=== PATIENT | male | born 1940 | race Caucasian/White ===

== ENCOUNTER 2022-05-23 18:39 | Inpatient (IN) | payer MEDICARE, SELFPAY ==
[2022-05-23 18:40] VITALS: BP 133/84; PULSE 76; RESP 18; O2SAT 95; BMI 25.7
--- NOTE | 2022-05-23 18:40 | EKG12_ITS ---
Test Reason : Stroke like symptoms Blood Pressure : / mmHG Vent. Rate : 079 BPM Atrial Rate : 079 BPM P-R Int : 202 ms QRS Dur : 072 ms QT Int : 374 ms P-R-T Axes : 058 030 070 degrees QTc Int : 428 ms Sinus rhythm with occasional Premature ventricular complexes Nonspecific ST abnormality Abnormal ECG Confirmed by MARCO SEVILLA, VICKI ([id number]), editor book HIMANSHU VÁZQUEZ ([id number]) on 05/28/2022 10:39:47 AM Referred By: Confirmed By:CHARLEY LARA MD
--- NOTE | 2022-05-23 18:40 | CT_ITS ---
We are attempting to reach an attending provider to discuss findings. An addendum with communication details will be sent when the communication is complete. STUDY: CT BRAIN WITHOUT CONTRAST REASON FOR EXAM: Male, 81 years old. Neuro deficit, acute, stroke suspected Individualized dose optimization techniques were used for this CT. TECHNIQUE: Transaxial CT imaging of the brain was performed without administration of intravenous contrast material. COMPARISON: None FINDINGS: There are calcifications around the carotid artery. These are noted in the cavernous carotid arteries. Normal calvarium. Normal soft tissues. There is mild cerebral atrophy with widening of the extra-axial spaces and ventricular dilatation. There are areas of decreased attenuation within the white matter tracts of the supratentorial brain, consistent with microvascular disease changes. Normal basal ganglia and thalami. Normal brainstem. There is mild cerebellar atrophy. There is no intracranial hemorrhage. There are no findings of an acute ischemic infarction. Degenerative changes of the mandibular condyles. ASPECTS Score for Acute Strokes: 12/04 CT/STROKE Brain/Head without Cont IMPRESSION: There are no acute findings. Chronic involutional changes of the brain. Electronically Signed: Chavo Farrell MD at 18:54 EDT ,
--- NOTE | 2022-05-23 18:41 | CT_ITS ---
We are attempting to reach an attending provider to discuss findings. An addendum with communication details will be sent when the communication is complete. EXAM: CT ANGIOGRAPHY HEAD AND NECK WITH INTRAVENOUS CONTRAST CLINICAL INDICATION: Neuro deficit, acute, stroke suspected TECHNIQUE: [place] [facility] [place]/head and neck CT angiography protocol performed with intravenous contrast. This CT exam was performed using one or more of the following dose reduction techniques: automated exposure control, adjustment of the mA and/or kV according to patient size, and/or use of iterative reconstruction technique. This report was created using [employer] report [employer] technology. MIP reconstructed images were created and reviewed. CONTRAST: IV 100mL Isovue-370 RADIATION DOSE: CTDIvol = 21.80 mGy, DLP = 795.23 mGy-cm COMPARISON: None. FINDINGS: HEAD: RIGHT ANTERIOR CEREBRAL ARTERY: Unremarkable. No significant stenosis at the visualized segments. Anterior communicating artery is present. No aneurysm. RIGHT MIDDLE CEREBRAL ARTERY: Unremarkable. No significant stenosis at the visualized segments. No aneurysm. RIGHT POSTERIOR CEREBRAL ARTERY: Unremarkable. No occlusion or significant stenosis. No aneurysm. RIGHT INTRACRANIAL INTERNAL CAROTID ARTERY: Unremarkable. No significant stenosis. No dissection or occlusion. RIGHT INTRACRANIAL VERTEBRAL ARTERY: Unremarkable. No significant stenosis. No dissection or occlusion. LEFT ANTERIOR CEREBRAL ARTERY: Unremarkable. No significant stenosis at the visualized segments. No aneurysm. LEFT MIDDLE CEREBRAL ARTERY: Unremarkable. No significant stenosis at the visualized segments. No aneurysm. LEFT POSTERIOR CEREBRAL ARTERY: Unremarkable. No occlusion or significant stenosis. No aneurysm. LEFT INTRACRANIAL INTERNAL CAROTID ARTERY: Unremarkable. No significant stenosis. No dissection or occlusion. LEFT INTRACRANIAL VERTEBRAL ARTERY: Unremarkable. No significant stenosis. No dissection or occlusion. BASILAR ARTERY: Unremarkable. No significant stenosis. No aneurysm. OTHER VASCULATURE: There is mild atherosclerotic plaque formation of the origin of the right internal carotid artery with less than 50% cross sectional diameter stenosis. ALL ABOVE CRITERIA BY NASCET. There is mild atherosclerotic plaque formation of the origin of the left internal carotid artery with less than 50% cross sectional diameter stenosis. ALL ABOVE CRITERIA BY NASCET. There is calcified plaque formation of the right cavernous carotid artery, with a mild stenosis (less than 50%). ALL ABOVE CRITERIA BY NASCET. There is calcified plaque formation of the left cavernous carotid artery, with a mild stenosis (less than 50%). ALL ABOVE CRITERIA BY NASCET. NECK: RIGHT COMMON CAROTID ARTERY: Unremarkable. No significant stenosis. No dissection or occlusion. RIGHT EXTRACRANIAL INTERNAL CAROTID ARTERY: Unremarkable. No significant stenosis. No dissection or occlusion. RIGHT EXTERNAL CAROTID ARTERY: Unremarkable. No occlusion. RIGHT EXTRACRANIAL VERTEBRAL ARTERY: Unremarkable. No significant stenosis. No dissection or occlusion. LEFT COMMON CAROTID ARTERY: Unremarkable. No significant stenosis. No dissection or occlusion. LEFT EXTRACRANIAL INTERNAL CAROTID ARTERY: Unremarkable. No significant stenosis. No dissection or occlusion. LEFT EXTERNAL CAROTID ARTERY: There is mild atherosclerotic plaque formation of the origin of the right and left external carotid artery with less than 50% cross sectional diameter stenosis. ALL ABOVE CRITERIA BY NASCET. No occlusion. LEFT EXTRACRANIAL VERTEBRAL ARTERY: Unremarkable. No significant stenosis. No dissection or occlusion. BRACHIOCEPHALIC AND SUBCLAVIAN ARTERIES: Unremarkable as visualized. No occlusion or significant stenosis. LUNG APICES: Unremarkable as visualized. HEAD and NECK: BONES/JOINTS: There are degenerative findings of the cervical spine. Anterior cervical fusion plate in place. No discrete lytic or blastic abnormalities. SOFT TISSUES: Unremarkable. CAROTID STENOSIS REFERENCE USING NASCET CRITERIA: % ICA stenosis = (1 - narrowest ICA diameter/diameter of distal cervical ICA) x 100. Mild - <50% stenosis. Moderate - 50-69% stenosis. Severe - 70-94% stenosis. Near occlusion - 95-99% stenosis. Occluded - 100% stenosis. CT/STROKE CTA Head AND Neck W/Con IMPRESSION: 1. There is mild atherosclerotic plaque formation of the origin of the right internal carotid artery with less than 50% cross sectional diameter stenosis. ALL ABOVE CRITERIA BY NASCET. 2. There is mild atherosclerotic plaque formation of the origin of the left internal carotid artery with less than 50% cross sectional diameter stenosis. ALL ABOVE CRITERIA BY NASCET. 3. There is calcified plaque formation of the right cavernous carotid artery, with a mild stenosis (less than 50%). ALL ABOVE CRITERIA BY NASCET. 4. There is calcified plaque formation of the left cavernous carotid artery, with a mild stenosis (less than 50%). ALL ABOVE CRITERIA BY NASCET. Electronically Signed: Chavo Farrell MD at 19:23 EDT ,
[2022-05-23 18:49] VITALS: PULSE 93; RESP 20; TEMP 36.1; O2SAT 93; BMI 25.6
--- NOTE | 2022-05-23 18:49 | EDS_ITS ---
HPI History of Present Illness Chief Complaint: Stroke Alert Detail of Chief Complaint: Altered mental status Informant: family (Son who lives with him states he was normal at noon. He began to have changes at 1400.) Limited: dementia Onset/Context/Timing Onset: Hours (Onset 1400) Context: Sudden Onset Timing: Continuous Onset: 1400 Current Severity: Severe Maximum Severity: Severe Worsened by: Unknown Relieved by: Not Associated Symptoms Associated Symptoms: Positive for - (Aphasia) Narrative Narrative: Patient is an 81-year-old gentleman who has type 1 diabetes for 75 years and lives with his son who arrived by ambulance for possible stroke. Initial onset was thought to be 12 noon per squad. After speaking with son it was determined the onset was 1400. Son states at noon he was talking and watching the news. Son states at approximately 2:00 he was not acting his normal self. He checked his blood sugar. Blood sugar was 168. He gave him something to eat. There was no change in his behavior. Repeat blood sugar was 119. At which point he contacted paramedics. He believes this was around 1430. At 1445 blood sugar was 69. Per squad blood sugar was 39. He initially was treated with glucagon. He was then administered D50 once an IV was established. He was more responsive and began to eat. Son states he has not spoken since 1400. Patient was met in the ambulance bay. Patient is staring and has pin rolling motion noted left upper extremity. Per son and squad there is no history of Parkinson's. Prior similar symptoms: No Recent Illness/Hospitalization: No PFSH PFSH Home Medications insulin NPH isoph U-100 human 100 unit/mL subcutaneous suspension (Humulin N NPH U-100 Insulin (isophane susp)) 40 unit SQ DAILY 01/11/17 [History Last Taken 01/11/17 08:00] Allergy/AdvReac Type Severity Reaction Status Date / Time No Known Allergies Allergy Verified 01/11/17 17:48 Social History (Updated 05/23/22 @ 18:[address] Walter Garcia MD) household members: family Smoking Status: Never smoker alcohol intake: current alcohol intake frequency: holidays/special occasions only substance use type: does not use ROS ROS ED Review of Systems ROS Unobtainable: due to mental status EXAM Physical Exam Const Vital Signs: 05/23/22 18:40 05/23/22 18:49 05/23/22 19:03 Temperature 97.0 F L Temperature Source Temporal Pulse Rate 93 78 Respiratory Rate 20 H 22 H Blood Pressure 138/65 H Blood Pressure Mean 89 Pulse Ox 93 99 Oxygen Delivery Method Room Air Room Air Room Air 05/23/22 18:40 Temperature Temperature Source Pulse Rate 76 Respiratory Rate 18 Blood Pressure 133/84 H Blood Pressure Mean 100 Pulse Ox 95 Oxygen Delivery Method Room Air Positive well nourished and well developed Constitutional Narrative: Patient is staring. There is abnormal pin rolling motion of the left upper extremity General Appearance ED: well developed and NAD HEENT Reports dry mucous membranes Mouth ED: Yes dry mucous membranes Mouth: dry mucous membranes Eyes EOMs intact bilaterally Eyes Narrative: There is no nystagmus. Patient does blink to threat. General Eye ED: Negative for pale conjunctiva or scleral icterus Neck no lymphadenopathy, supple and no JVD Resp normal respiratory effort and clear to auscultation bilaterally Cardio no murmurs Rate: regular rate Rhythm: regular rhythm GI normal to inspection, nondistended, normoactive bowel sounds, soft to palpation and non-tender Extremity normal to inspection General Extremety ED: Negative for deformity or edema General Extremity: Negative for deformity or edema Neuro No oriented x3 Stefanie Coma Scale: document GCS findings Spontaneous Localizes to Pain None 10 Psych Psych Narrative: Unable to determine Skin no wounds General Skin Exam: Negative for jaundice Lesions: no lesions Rashes: no rashes NIHSS NIHSS Initial: 1a Level of Consciousness: 1 1b LOC Questions (Score 2 if aphasic/stupor): 2 1c LOC Commands (Only score 1st attempt): 2 2 Best Gaze (If aphasic, use reflexive mvmts.): 0 3 Visual: 0 4 Facial Palsy: 0 5 Motor Arm Right (UN = amputation/fusion): 0 5 Motor Arm Left: 0 6 Motor Leg Right: UN 6 Motor Leg Left: UN 7 Limb ataxia (Only + if out of proportion): UN 8 Sensory (Aphasia/stupor=0 or 1, coma=2): 1 9 Best Language: 3 10 Dysarthria (mute, coma=2, intubated=UN): 2 11 Extinction and Inattention (only scored if +): 0 Total Score: 11 MDM MDM MDM Narrative Medical decision making narrative: Differential diagnosis stroke, residual effect from hyperglycemia, partial/complex seizure. Patient is outside the window for tenecteplase. Stroke team was called prehospital. Stroke order set was entered. The radiologist read the unenhanced scan is negative. We will need to also evaluate metabolic or infectious causes. History & Record Review Discussion w/independent historian: EMS personnel and Family Additional record(s) reviewed:: Prior ED visit (Last ER visit was in 2017 for hypoglycemia) Lab Data Attestation: I reviewed the patient's lab results. Lab results narrative: White count is slightly elevated. H&H is 12.3 and 35.1 with an MCV of 104.1. This for results mild macrocytosis anemia. Coags normal. Basic metabolic panel is remarked for a glucose of 211 with normal CO2 and anion gap. Troponin is normal. Labs: Laboratory Results - last 24 hr 05/23/22 05/23/22 05/23/22 19:00 19:00 19:00 WBC 12.7 H RBC 3.39 L Hgb 12.3 L Hct 35.3 L MCV 104.1 H MCH 36.3 H MCHC 34.8 RDW Std Deviation 51.3 H RDW Coeff of Fabricio 13.2 Plt Count 232 MPV 10.3 Immature Gran % (Auto) 0.500 Neut % (Auto) 88.3 H Lymph % (Auto) 6.3 L Coleman % (Auto) 4.3 Eos % (Auto) 0.2 Baso % (Auto) 0.4 Absolute Neuts (auto) 11.3 H Absolute Lymphs (auto) 0.80 L Nucleated RBC % 0 PT 14.1 INR 1.1 APTT 25.3 Sodium 136 Potassium 4.2 Chloride 102 Carbon Dioxide 28.0 Anion Gap 6 BUN 16 Creatinine 1.01 Estim Creat Clear Calc 54.55 Est GFR (MDRD) Af Amer 91 Est GFR (MDRD) Non-Af 75 BUN/Creatinine Ratio 15.8 Glucose 211 H Calcium 8.5 Troponin I High Sens 47 Radiography Chest X-Ray - ED: 1 View and Read by ED Physician (Single view x-ray reveals rotation. Possible borderline cardiomegaly. Cardiac silhouette is unremarkable. Perihilar region is remarkable because of the rotation otherwise not. Osseous structures unremarkable. There is no acute infiltrate, effusion etc. This is independently reviewed interprete) Diagnostic Testing: Clinical Impression(s) from Imaging Studies Brain CT 05/23/22 18:40 IMPRESSION: There are no acute findings. Chronic involutional changes of the brain. Electronically Signed: Chavo Farrell MD at 18:54 EDT , ADDENDUM: 05/23/22 1902 IMPRESSION: There are no acute findings. Chronic involutional changes of the brain. N.B. : The above Results were Read Back by Chavo Farrell MD to Walter Garcia MD, and understanding confirmed on 05/23/2022 18:55:16 (ET). Electronically Signed: Chavo Farrell MD at 18:54 EDT , Head/Neck CTA 05/23/22 18:41 IMPRESSION: 1. There is mild atherosclerotic plaque formation of the origin of the right internal carotid artery with less than 50% cross sectional diameter stenosis. ALL ABOVE CRITERIA BY NASCET. 2. There is mild atherosclerotic plaque formation of the origin of the left internal carotid artery with less than 50% cross sectional diameter stenosis. ALL ABOVE CRITERIA BY NASCET. 3. There is calcified plaque formation of the right cavernous carotid artery, with a mild stenosis (less than 50%). ALL ABOVE CRITERIA BY NASCET. 4. There is calcified plaque formation of the left cavernous carotid artery, with a mild stenosis (less than 50%). ALL ABOVE CRITERIA BY NASCET. Electronically Signed: Chavo Farrell MD at 19:23 EDT , ADDENDUM: 05/23/22 1931 IMPRESSION: 1. There is mild atherosclerotic plaque formation of the origin of the right internal carotid artery with less than 50% cross sectional diameter stenosis. ALL ABOVE CRITERIA BY NASCET. 2. There is mild atherosclerotic plaque formation of the origin of the left internal carotid artery with less than 50% cross sectional diameter stenosis. ALL ABOVE CRITERIA BY NASCET. 3. There is calcified plaque formation of the right cavernous carotid artery, with a mild stenosis (less than 50%). ALL ABOVE CRITERIA BY NASCET. 4. There is calcified plaque formation of the left cavernous carotid artery, with a mild stenosis (less than 50%). ALL ABOVE CRITERIA BY NASCET. N.B. : The above Results were Read Back by Chavo Farrell MD to Walter Garcia MD, and understanding confirmed on 05/23/2022 19:24:10 (ET). Electronically Signed: Chavo Farrell MD at 19:23 EDT , EKG Initial EKG: Attestation: I personally reviewed and interpreted this EKG as follows: Interpretation: Sinus Rhythm (Ventricular rate 79. There are premature ventricular beats noted. There is artifact. VA interval is 202 ms. Cures duration 73 ms. QT durations 174 ms. [place] is normal. Computer is reading the artifact as nonspecific ST-T wave changes.) Management Discussion w/another healthcare provider: Client Services Account Manager (Spoke with Dr. Nascimento neurologist at [facility]. She requested call back if there was a significant large v essel occlusion otherwise local work-up. Agrees differential would include adverse reaction to hypoglycemia.) and Radiologist (Spoke with radiologist regarding unenhanced scan.) Stroke Documentation Questions Stroke Team Activated: Yes Reviewed Inclusion/Exclusion criteria: Yes IV Thrombolytic Administered: No No contraindications from thrombolytic administration: No Discharge Plan Dx/Rx/DC Orders Clinical Impression: Expressive aphasia, Dementia, Acute alteration in mental status, Controlled type 1 diabetes mellitus with hyperglycemia Disposition Disposition: Acute Care Hospital [facility]
--- NOTE | 2022-05-23 18:49 | CM.ED ---
Social Work Note Referral Source: stroke alert Referral Reason: emotional support. SW responded to stroke alert and introduced herself and role as [facility] Record Clerk. Patient's son, Frankie, was present. 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 Emotional support provided. SAURABH Melendez gathering information from patient's son. SW remains available if additional needs arise. Ani Stahl AIRPORT LOCATION MANAGER, [place]
[2022-05-23 19:02] VITALS: BMI 25.7
[2022-05-23 19:03] VITALS: BP 138/65; PULSE 78; RESP 22; O2SAT 99
[2022-05-23 19:06] LABS: Absolute Neutrophil Count 11.3 X10^3/uL (2.0-7.7); Basophil# 0.05 X10^3/uL; Basophil% 0.4 % (0-1); Eosinophil# 0.02 X10^3/uL; Eosinophils% 0.2 % (0-5); Hematocrit 35.3 % (40-54); Hemoglobin 12.3 g/dL (13.0-16.5); Lymphocyte % 6.3 % (19-41); Mean Corp Hgb Conc 34.8 g/dL (32-36); Mean Corpuscular Hgb 36.3 pg (27.0-32.0); Mean Corpuscular Volume 104.1 fL (80-94); Mean Platelet Vol. 10.3 fl (6.2-12.0); Monocyte# 0.55 X10^3/uL; Monocyte% 4.3 % (0-10); NRBC Flagged by Analyzer 0 % (0-5); Neutrophil # 11.25 X10^3/uL (2.7-7.7); Neutrophil % 88.3 % (47-70); Platelet Count 232 K/mm3 (150-450); RBC Distribution Width CV 13.2 % (11.6-14.6); RBC Distribution Width SD 51.3 fl (35.1-43.9); Red Blood Count 3.39 M/mm3 (4.6-6.2); White Blood Count 12.7 K/mm3 (4.4-11.0)
[2022-05-23 19:24] LABS: Anion Gap 6 (5-15); BUN 16 mg/dL (7-18); BUN/Creat Ratio 15.8 RATIO (10-20); Calcium,Total 8.5 mg/dL (8.5-10.1); Chloride 102 mmol/L (98-107); Creatinine, Serum 1.01 mg/dL (0.70-1.30); EST Glomerular Filtration Rate 75 mL/min (>60); Est Glom Filt Rate - Afr Amer 91 mL/min (>60); Estimated Creatinine Clearance 54.55 ml/min; Glucose 211 mg/dL (74-106); Potassium 4.2 mmol/L (3.5-5.1); Sodium Level 136 mmol/L (136-145); Troponin-I HS 47 pg/mL (3.0-78.0)
--- NOTE | 2022-05-23 19:24 | RAD_ITS ---
STUDY: XR Chest 1 View 05/23/2022 7:20 PM REASON FOR EXAM: Male, 81 years old. CHEST PAIN Neuro deficit, acute, stroke suspected COMPARISON: None TECHNIQUE: XR Chest 1 View FINDINGS: There is no demonstrated pleural abnormality. Healed right rib fractures. Normal heart size. Normal mediastinum. Normal yobani. Prominent appearing increased interstitial lung markings. Normal visualized pulmonary arteries. There is atherosclerotic calcification of the aortic arch with tortuosity. There are diffuse degenerative changes of the visualized thoracic spine. There is degenerative osteoarthritis of the bilateral shoulders. There is no demonstrated abnormality of the visualized soft tissue structures of the upper abdomen. RAD/Chest 1 View IMPRESSION: There are no acute findings. Electronically Signed: Chavo Farrell MD at 19:41 EDT ,
[2022-05-23 19:26] LABS: International Normalized Ratio 1.1; Partial Thromboplast Time 25.3 Seconds (24.1-36.2); Prothrombin Time (Protime)PT. 14.1 SECONDS (11.7-14.9)
--- NOTE | 2022-05-23 19:27 | HP.PCM.HOS_ITS ---
HPI - General General Date of Admission: 05/23/22 Date of Service: 05/23/22 Chief Complaint: Altered mental status HPI Narrative HONEY LYNNE, is a 81 M with a significant history of dementia; thyroid disease and type 1 diabetes who presented to emergency department via squad for altered mental status. Reportedly at about 2 PM on the day of presentation his son who lives with him checked his blood sugar randomly as he usually does. His blood sugar was 186. At about 1245 patient was unresponsive. His blood glucose at that time was 116. His son called the paramedics who came and treated patient. Patient ate sandwich and drank some 7-Up. The paramedics eventually left. About 15 minutes thereafter patient became aphasic and he was shaking. Paramedics were called back and patient was subsequently brought to the hospital by paramedics. At the emergency department patient was evaluated by stroke neurologist. Patient was outside window of tPA. Emergency department doctor reports that on second examination patient was found to have a deviation of his eyes to the left. Patient was found in ED room to be vomiting. History was provided by patient's son who was at the bedside as patient could not provide history. [facility] Medical History Controlled type 1 diabetes mellitus with hyperglycemia Dementia Thyroid disease Home Medications insulin NPH isoph U-100 human 100 unit/mL subcutaneous suspension (Humulin N NPH U-100 Insulin (isophane susp)) 40 unit SQ DAILY 01/11/17 [History Last Taken 01/11/17 08:00] Allergy/AdvReac Type Severity Reaction Status Date / Time No Known Allergies Allergy Verified 01/11/17 17:48 Family History Other Cancer Surgical History H/O neck surgery History of back surgery Social History household members: family Smoking Status: Never smoker alcohol intake: current alcohol intake frequency: holidays/special occasions only substance use type: does not use ROS ROS Narrative Pertinent positives and pertinent negatives as noted in HPI. All other systems were reviewed and are negative Vital Signs Vital Signs Vital Signs: 05/23/22 18:40 05/23/22 18:49 05/23/22 19:03 Temperature 97.0 F L Temperature Source Temporal Pulse Rate 93 78 Respiratory Rate 20 H 22 H Blood Pressure 138/65 H Blood Pressure Mean 89 Pulse Ox 93 99 Oxygen Delivery Method Room Air Room Air Room Air Weight Weight: 78.8 kg Body Mass Index (BMI) 25.7 Physical Exam Narrative Physical exam: General: Well-nourished, well-developed. Head: Normocephalic, atraumatic, no tenderness Eyes: Normal confrontation test to the left. 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 Eyes mildly deviated to the left. CVS: Regular rate and rhythm. S1-S2 present. No murmur, gallop or rub. Respiratory : clear to auscultation bilaterally, chest wall nontender Abdomen: Soft, nontender, nondistended, normal bowel sounds, no masses : Deferred Back: Nontender, no CVA tenderness,. Extremities: Does not follow commands to move extremities. No trauma Skin: Normal color, no trauma, abrasions Neuro: Alert, mumbling. Does not follow command to check orientation. Psychiatry: Fidgety in bed. Results Medical Records Data Attestation: I reviewed the patient's medical records Lab / Micro Data Attestation: I reviewed the patient's lab results. Result Diagrams: 05/23/22 19:00 05/23/22 19:00 Labs: Laboratory Results - last 24 hr 05/23/22 19:00: WBC 12.7 H, RBC 3.39 L, Hgb 12.3 L, Hct 35.3 L, MCV 104.1 H, MCH 36.3 H, MCHC 34.8, RDW Std Deviation 51.3 H, RDW Coeff of Fabricio 13.2, Plt Count 232, MPV 10.3, Immature Gran % (Auto) 0.500, Neut % (Auto) 88.3 H, Lymph % (Auto) 6.3 L, [place] % (Auto) 4.3, Eos % (Auto) 0.2, Baso % (Auto) 0.4, Absolute Neuts (auto) 11.3 H, Absolute Lymphs (auto) 0.80 L, Nucleated RBC % 0 05/23/22 19:00: Sodium 136, Potassium 4.2, Chloride 102, Carbon Dioxide 28.0, Anion Gap 6, BUN 16, Creatinine 1.01, Estim Creat Clear Calc 54.55, Est GFR (MDRD) Af Amer 91, Est GFR (MDRD) Non-Af 75, BUN/Creatinine Ratio 15.8, Glucose 211 H, Calcium 8.5, Troponin I High Sens [address] 05/23/22 18:40 IMPRESSION: There are no acute findings. Chronic involutional changes of the brain. Electronically Signed: Chavo Farrell MD at 18:54 EDT , ADDENDUM: 05/23/22 1902 IMPRESSION: There are no acute findings. Chronic involutional changes of the brain. N.B. : The above Results were Read Back by Chavo Farrell MD to Walter Garcia MD, and understanding confirmed on 05/23/2022 18:55:16 (ET). Electronically Signed: Chavo Farrell MD at 18:54 EDT , Head/Neck CTA 05/23/22 18:41 IMPRESSION: 1. There is mild atherosclerotic plaque formation of the origin of the right internal carotid artery with less than 50% cross sectional diameter stenosis. ALL ABOVE CRITERIA BY NASCET. 2. There is mild atherosclerotic plaque formation of the origin of the left internal carotid artery with less than 50% cross sectional diameter stenosis. ALL ABOVE CRITERIA BY NASCET. 3. There is calcified plaque formation of the right cavernous carotid artery, with a mild stenosis (less than 50%). ALL ABOVE CRITERIA BY NASCET. 4. There is calcified plaque formation of the left cavernous carotid artery, with a mild stenosis (less than 50%). ALL ABOVE CRITERIA BY NASCET. Electronically Signed: Chavo Farrell MD at 19:23 EDT , Assessment & Plan Assessment/Plan (1) Stroke-like symptoms: (2) Controlled type 1 diabetes mellitus with hyperglycemia: (3) Dementia: (4) Type 1 diabetes: PLAN: Plan Strokelike symptoms Serial NINDS NIH Scale ordered Impression of head CT by radiology: There are no acute findings. Chronic involutional changes of the brain. Upon my personal head CT image review: I agree with radiologist interpretation Lipid profile and A1c ordered. Physical therapy, occupational therapy and speech therapy to work with patient. N.p.o. until bedside swallow eval. Daily aspirin and Plavix ordered. High intensity statin Permissive hypertension. Control blood pressure with labetalol for systolic blood pressure of more than 220 or diastolic blood pressure of more than 120. Head and neck CTA with no LVO. MRI brain ordered Echocardiogram ordered. Differentials include acute encephalopathy. TSH vitamin B12 and ammonia level ordered. Type 1 diabetes mellitus Erratic Hold home intermediate insulin. Accu-Chek with correction scale insulin ordered. Thyroid disease Check TSH. Microcytic anemia Mild with hemoglobin of 12.3 on presentation. MCV of 104.1. No previous records to compare with. Trend CBC. Leukocytosis White count of 12,700. Likely reactive. Trend CBC. CKD stage II Stable Likely secondary to diabetes. Trend BMP. DVT prophylaxis SCDs ordered Charges/Coding Visit Charges Inpatient E&M: 11971 Init Hosp L3
[2022-05-23 20:25] VITALS: BP 130/78; PULSE 72; RESP 25; O2SAT 100
[2022-05-23 21:08] VITALS: BP 151/79; PULSE 66; RESP 12; TEMP 36.8; O2SAT 100
[2022-05-23 21:21] LABS: Bedside Glucose 119 mg/dL (74-106)
[2022-05-23 22:00] VITALS: BP 158/65; PULSE 71; RESP 26; O2SAT 100
--- NOTE | 2022-05-23 23:23 | MRI_ITS ---
HISTORY: cva, altered mental status. TECHNIQUE: Multiplanar and multisequence MR images of the brain were obtained without contrast. 269 images. COMPARISON: CT prior day. FINDINGS: Motion artifact lowers the sensitivity of examination. BRAIN PARENCHYMA: Small chronic left cerebellar infarct. Advanced chronic white matter changes. No abnormal focus of restricted diffusion. CSF SPACES: Advanced volume loss. No significant midline shift or other mass effect.No extra-axial fluid collection. VASCULAR SYSTEM: Major intracranial flow voids are maintained. PARANASAL SINUSES AND MASTOID AIR CELLS: No significant air fluid levels. ORBITS: Bilateral lens resections. MRI/Brain without Contrast IMPRESSION: Motion artifact. No evidence for acute infarct. Advanced chronic involutional and white matter changes. Old left cerebellar infarct. Electronically Signed: Marlene Smith MD at 11:04 EDT ,
--- NOTE | 2022-05-23 23:23 | ECHOD_ITS ---
Reason For Study: TIA/CVA Procedure This was a 2D Doppler, Color Flow transthoracic echocardiogram. Bubble Study performed. Exam performed portable in patient room. Left Ventricle Normal LV size. The estimated ejection fraction is 70 %. Unable to assess diastolic dysfunction. No regional wall motion abnormalities noted. Right Ventricle Normal RV size. Normal systolic function. Atria Normal left atrium. Normal right atrium. No doppler evidence for ASD. Bubble contrast study negative for right to left interatrial shunt. Mitral Valve There is no mitral valve stenosis. Mild (1+) mitral valve insufficiency. Tricuspid Valve There is no tricuspid stenosis. Trivial tricuspid valve insufficiency. Pulmonary artery systolic pressure is 45-50 mmHg. Aortic Valve Aortic sclerosis, no stenosis. There is no aortic stenosis. No aortic valve insufficiency. Pulmonic Valve There is no pulmonic valvular stenosis. No pulmonic valve insufficiency. Great Vessels Normal aortic root. Pericardium/Pleural No pericardial effusion. Medication Performed a rapid injection of agitated mix of 9 cc saline and 1cc air to assess for atrial septal defect. MMode/2D Measurements & Calculations LVIDd: 4.3 cm IVSd: 1.1 cm Ao root diam: 3.4 cm LVIDs: 2.9 cm LVPWd: 0.86 cm LA dimension: 3.4 cm RVDd: 3.5 cm FS: 33.7 % LAV(MOD-bp): 54.6 ml LA A4 area: 22.7 cm2 RA A4 area: 16.2 cm2 LAV(MOD-bp) Indexed: 29.4 ml/m2 LAV(MOD-sp2): 42.9 ml LAV(MOD-sp4): 60.2 ml Time Measurements MV dec time: 0.24 sec Doppler Measurements & Calculations MV E max angel: 99.1 cm/sec Lat Peak E' Angel: 8.1 cm/sec Med Peak E' Angel: 8.2 cm/sec MV A max angel: 133.6 cm/sec E/E' lat: 12.2 E/E' med: 12.1 MV E/A: 0.74 MV V2 max: 145.4 cm/sec MV P1/2t max angel: 109.7 cm/sec Ao V2 max: 132.6 cm/sec MV max P.5 mmHg MV P1/2t: 93.1 msec Ao max P.0 mmHg MV V2 mean: 78.8 cm/sec MV dec slope: 344.9 cm/sec2 MV mean P.8 mmHg MV V2 VTI: 46.0 cm MVA(P1/2t): 2.4 cm2 LV V1 max: 115.3 cm/sec MR max angel: 584.7 cm/sec PA V2 max: 100.5 cm/sec LV V1 max P.3 mmHg MR max P.8 mmHg TR max angel: 323.9 cm/sec PI dec slope: 222.3 cm/sec2 TR max P.0 mmHg ECHO/Echo Complete Interpretation Summary The estimated ejection fraction is 70 %. Mild (1+) mitral valve insufficiency. Aortic sclerosis, no stenosis. Ordering Physician: Frankie Prasad Performed By: Thomas Ly RCS
[2022-05-23 23:26] VITALS: BMI 22.9
[2022-05-24] VITALS (7 sets, daily range): BP systolic 115–124; BP diastolic 49–65; PULSE 64–80; RESP 16–18; TEMP 36.6–36.9; O2SAT 97–99; BMI 22.9
[2022-05-24] MEDS: Insulin Lispro 100 UNIT/ML INSULN.PEN SC ×2 (02:06→07:53)
[2022-05-24 02:15] LABS: Bedside Glucose 178 mg/dL (74-106)
[2022-05-24 05:02] LABS: Absolute Lymphocyte Count 0.78 X10^3/uL (0.83-4.51); Absolute Neutrophil Count 8.7 X10^3/uL (2.0-7.7); Basophil# 0.04 X10^3/uL; Basophil% 0.4 % (0-1); Eosinophil# 0.01 X10^3/uL; Eosinophils% 0.1 % (0-5); Hematocrit 33.2 % (40-54); Hemoglobin 11.5 g/dL (13.0-16.5); Lymphocyte # 0.78 X10^3/ul (0.83-4.51); Lymphocyte % 7.7 % (19-41); Mean Corp Hgb Conc 34.6 g/dL (32-36); Mean Corpuscular Hgb 36.3 pg (27.0-32.0); Mean Corpuscular Volume 104.7 fL (80-94); Mean Platelet Vol. 11.2 fl (6.2-12.0); NRBC Flagged by Analyzer 0 % (0-5); Neutrophil # 8.71 X10^3/uL (2.7-7.7); Neutrophil % 86.5 % (47-70); Platelet Count 221 K/mm3 (150-450); RBC Distribution Width SD 50.3 fl (35.1-43.9); Red Blood Count 3.17 M/mm3 (4.6-6.2); White Blood Count 10.1 K/mm3 (4.4-11.0)
[2022-05-24 05:31] LABS: Anion Gap 9 (5-15); BUN 15 mg/dL (7-18); BUN/Creat Ratio 19.4 RATIO (10-20); Calcium,Total 8.3 mg/dL (8.5-10.1); Chloride 103 mmol/L (98-107); Cholesterol 135 mg/dL (200); Creatinine, Serum 0.77 mg/dL (0.70-1.30); EST Glomerular Filtration Rate 102 mL/min (>60); Est Glom Filt Rate - Afr Amer 124 mL/min (>60); Glucose 272 mg/dL (74-106); High Density Lipoprotein 41 mg/dL; Potassium 4.1 mmol/L (3.5-5.1); Sodium Level 137 mmol/L (136-145); Thyroid Stim Hormone (TSH) 2.15 uIU/mL (0.358-3.74); Triglycerides 53 mg/dL; Very Low Density Lipoprotein 11 mg/dL (5-40)
[2022-05-24 07:58] LABS: Vitamin B12 151 pg/mL (211-911)
[2022-05-24] MEDS: Clopidogrel Bisulfate 75 MG Tablet PO (08:04)
[2022-05-24] MEDS: Aspirin 81 MG TAB.CHEW PO (08:04)
[2022-05-24 08:10] LABS: Bedside Glucose 390 mg/dL (74-106)
[2022-05-24 08:56] LABS: Hemoglobin A1c 7.5 % (3.8-5.6)
--- NOTE | 2022-05-24 10:25 | CASEMGMT ---
SAURABH ZHAO Face to Face with son for initial transition planning/care coordination assessment. SAURABH ZHAO introduced self and role at [facility]. Patient out of room for testing. SonFrankie willing to participate in assessment and is able to answer all questions appropriately. Care providers, pharmacy, and demographics verified. Frankie wishes for patient to discharge home will monitor progress with therapy. Son states he has no further needs or concerns at this time. CM to follow for discharge planning needs that may arise. PCP: Anup Friedman Specialists: none Preferred Pharmacy: [facility] Insurance: [facility] Prescription Benefit: yes Living Will/HPOA: yes, delmi Grant LNOK: son Living Arrangements: Patient lives with son in a 2 story home with bed and bath on first floor, 4 steps to enter the home. Patient was independent prior Transportation: son DME/HHC: Patient has shower chair, raised toilet, cane, walker, and grab bars at home. No previous HHC or SNF Disposition Plan: TBD, will monitor progress with therapy, anticipate HHC vs SNF. [facility] BATES, RN, CM
[2022-05-24 11:15] LABS: Bedside Glucose 431 mg/dL (74-106)
[2022-05-24 11:20] LABS: Bedside Glucose 434 mg/dL (74-106)
[2022-05-24] MEDS: Insulin Lispro 100 UNIT/ML INSULN.PEN 15 UNIT SC (11:47)
--- NOTE | 2022-05-24 15:12 | CASEMGMT ---
SAURABH ZHAO was updated by therapy that patient could go home with [facility]. SAURABH ZHAO in to discuss discharge planning with patient and son. Son agreeable to [facility] for nursing and therapy. A list of [facility] providers including quality and resource use data and consistent with the patient?s preferred geographical region, medical needs, and insurance network were provided from the [facility] Guide. Son would like [facility]. SAURABH ZHAO called Ronal at [facility] and they do not accept patient's insurance. SAURABH ZHAO called [facility] and [facility] and they do not have staffing in the patient's service area. SAURABH ZHAO called and reached out to [facility] to review. Referrals were sent to [facility] and [facility]. SAURABH ZHAO updated son regarding multiple referrals being sent. CM will continue to follow this patient and plan for a safe discharge.
--- NOTE | 2022-05-24 15:29 | PCM.DC ---
Discharge Instructions Diet Discharge Diet: 1800 Calorie Control Diet Activity Discharge Activity: Return to Normal Activity Weight Bearing Status: Full weight bearing Follow Up Care Test Results: Test results from this visit will be discussed in further detail at your follow-up appointment, if applicable. Discharge Plan Admission Admit Date/Time: 05/23/22 20:18 Primary Reason for Your Visit: debility, hypoglycemia Attending Provider: Dash Acosta Primary Care Provider: FAHAD PLASENCIA Consulting Providers: Frankie Prasad Discharge Orders/Prescriptions Prescriptions: Continued Humulin N NPH U-100 Insulin 100 UNIT/ML suspension 40 unit SQ DAILY levothyroxine 137 mcg tablet 137 mcg PO 1XD Label Comments: TAKE 1 TABLET BY MOUTH ONCE DAILY IN THE MORNING ON AN EMPTY STOMACH donepezil 5 mg tablet 5 mg PO BID dronabinol 2.5 mg capsule 2.5 mg PO BID Label Comments: TAKE 1 CAPSULE BY MOUTH IN THE EVENING OR AT BEDTIME DAILY FOR 30 DAYS Referrals / Follow Up: FAHAD PLASENCIA [[facility]] [facility] Doctor,Out of [Non-Staff] - Within 2 Weeks Disposition Disposition (needs filled in before D/C Order can be placed): Home Health Service
--- NOTE | 2022-05-24 15:37 | PCM.DC.SUM ---
Providers Date of Admission: 05/23/22 Date of Discharge: 05/24/22 Primary Care Physician: FAHAD PLASENCIA Reason For Visit: ACUTE CVA Diagnosis Discharge Diagnosis (1) Stroke-like symptoms: Status: Acute Code(s): R29.90 - Unspecified symptoms and signs involving the nervous system (2) Controlled type 1 diabetes mellitus with hyperglycemia: Status: Acute Code(s): E10.65 - Type 1 diabetes mellitus with hyperglycemia (3) Dementia: Status: Inactive Code(s): F03.90 - Unspecified dementia, unspecified severity, without behavioral disturbance, psychotic disturbance, mood disturbance, and anxiety (4) Type 1 diabetes: Status: Acute Code(s): E10.9 - Type 1 diabetes mellitus without complications Plan 1. 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 #3 moderate pulmonary hypertension #4 type 1 diabetes-poorly controlled #5 mental status change secondary to hypoglycemia Medications at Discharge Home Medications insulin NPH isoph U-100 human 100 unit/mL subcutaneous suspension (Humulin N NPH U-100 Insulin (isophane susp)) 40 unit SQ DAILY diabetes 01/11/17 donepezil 5 mg tablet 5 mg PO BID mental health 05/23/22 dronabinol 2.5 mg capsule 2.5 mg PO BID appetite stimulant 05/23/22 levothyroxine 137 mcg tablet 137 mcg PO 1XD thyroid 05/23/22 Hospital Course Operations None Procedures 2-D Echocardiogram Summary of Care Provided Minutes Spent on Discharge: 31 Hospital Course: This 81-year-old white male was seen in the emergency room at [facility] after being brought in by squad at the instruction of his family due to a possible stroke. Patient states at noon the patient was talking and watching TV, approximately 2 hours later the son noticed he was not acting his normal self, he checked his blood sugar was 168, there was no change in his behavior after he was given something to eat and he contacted the paramedics for transport into the hospital. Shortly thereafter, the patient's blood sugar was noted to be 69, the squad arrived and the blood sugar at the time the squad saw the patient was 39. Patient was given glucagon and D50 was administered after an IV was established. Patient became then more responsive and began to eat, patient has a history of dementia according to the son. Work-up included a brain CT which showed no acute findings, involutional changes of the brain was noted, and patient had a CTA of the head and neck which did not show anything acute. Patient was admitted to PCU, after he was in PCU the patient appeared to return to his baseline according to his son. Patient's MRI of the brain showed no evidence for acute infarct, there were advanced chronic involutional and white matter changes noted and an old left cerebellar infarct. Patient's echocardiogram revealed moderate pulmonary hypertension but a normal EF. Patient was seen by PT and OT. Discussions were carried out with the son as to whether he wanted the patient to go to a extended care facility for rehab services, son finally decided that he would take his father home and care for him. On 05/24/2022, patient was seen and examined: On examination he appeared his stated age, he had confusion. Vital signs as documented. Skin warm and dry and without overt rashes. Neck without JVD, neck was supple, trachea midline, thyroid was normal. Lungs clear bilaterally, normal air movement was noted. Heart exam notable for regular rhythm, normal sounds and absence of murmurs, rubs or gallops. Abdomen unremarkable and without evidence of organomegaly, masses, or abdominal aortic enlargement. Bowel sounds are present, abdomen is not distended. Extremities nonedematous, no cyanosis was noted, no clubbing was noted. Neuro: Cranial nerves II through XII are grossly intact, no focal motor deficits were noted, sensation to light touch and pinprick intact, motor exam 5/5 throughout. Psych: Patient is alert he is confused Patient was discharged home in stable condition on 05/24/2022. Weight / BMI Weight Weight: 72.5 kg Body Mass Index (BMI) 22.9 ABG / Lab / Microbiology Data Result Diagrams: 05/24/22 03:55 05/24/22 03:55 Laboratory: Laboratory Results - last 24 hr 05/23/22 19:00: WBC 12.7 H, RBC 3.39 L, Hgb 12.3 L, Hct 35.3 L, MCV 104.1 H, MCH 36.3 H, MCHC 34.8, RDW Std Deviation 51.3 H, RDW Coeff of Fabricio 13.2, Plt Count 232, MPV 10.3, Immature Gran % (Auto) 0.500, Neut % (Auto) 88.3 H, Lymph % (Auto) 6.3 L, [place] % (Auto) 4.3, Eos % (Auto) 0.2, Baso % (Auto) 0.4, Absolute Neuts (auto) 11.3 H, Absolute Lymphs (auto) 0.80 L, Nucleated RBC % 0 05/23/22 19:00: PT 14.1, INR 1.1, APTT 25.3 05/23/22 19:00: Sodium 136, Potassium 4.2, Chloride 102, Carbon Dioxide 28.0, Anion Gap 6, BUN 16, Creatinine 1.01, Estim Creat Clear Calc 54.55, Est GFR (MDRD) Af Amer 91, Est GFR (MDRD) Non-Af 75, BUN/Creatinine Ratio 15.8, Glucose 211 H, Calcium 8.5, Troponin I High Sens 47 05/23/22 21:02: POC Glucose 119 H 05/24/22 01:54: POC Glucose 178 H 05/24/22 03:55: Sodium 137, Potassium 4.1, Chloride 103, Carbon Dioxide 25.0, Anion Gap 9, BUN 15, Creatinine 0.77, Estim Creat Clear Calc 58.40, Est GFR (MDRD) Af Amer 124, Est GFR (MDRD) Non-Af 102, BUN/Creatinine Ratio 19.4, Glucose 272 H, Calcium 8.3 L, Triglycerides 53, Cholesterol 135, LDL Cholesterol 83, VLDL Cholesterol 11, HDL Cholesterol 41, TSH 2.15 05/24/22 03:55: Vitamin B12 151 L 05/24/22 03:55: WBC 10.1, RBC 3.17 L, Hgb 11.5 L, Hct 33.2 L, MCV 104.7 H, MCH 36.3 H, MCHC 34.6, RDW Std Deviation 50.3 H, RDW Coeff of Fabricio 13.0, Plt Count 221, MPV 11.2, Immature Gran % (Auto) 0.300, Neut % (Auto) 86.5 H, Lymph % (Auto) 7.7 L, [place] % (Auto) 5.0, Eos % (Auto) 0.1, Baso % (Auto) 0.4, Absolute Neuts (auto) 8.7 H, Absolute Lymphs (auto) 0.78 L, Nucleated RBC % 0 05/24/22 03:55: Hemoglobin A1c 7.5 H 03/30/23 03:58: Ammonia 38.0 H 05/24/22 07:51: POC Glucose 390 H 05/24/22 08:01: POC Glucose 431 H 05/24/22 11:01: POC Glucose 434 H Radiography Diagnostic Testing: Radiology Impression Brain CT 05/23/22 18:40 IMPRESSION: There are no acute findings. Chronic involutional changes of the brain. Electronically Signed: Chavo Farrell MD at 18:54 EDT , ADDENDUM: 05/23/22 1902 IMPRESSION: There are no acute findings. Chronic involutional changes of the brain. N.B. : The above Results were Read Back by Chavo Farrell MD to Walter Garcia MD, and understanding confirmed on 05/23/2022 18:55:16 (ET). Electronically Signed: Chavo Farrell MD at 18:54 EDT , Head/Neck CTA 05/23/22 18:41 IMPRESSION: 1. There is mild atherosclerotic plaque formation of the origin of the right internal carotid artery with less than 50% cross sectional diameter stenosis. ALL ABOVE CRITERIA BY NASCET. 2. There is mild atherosclerotic plaque formation of the origin of the left internal carotid artery with less than 50% cross sectional diameter stenosis. ALL ABOVE CRITERIA BY NASCET. 3. There is calcified plaque formation of the right cavernous carotid artery, with a mild stenosis (less than 50%). ALL ABOVE CRITERIA BY NASCET. 4. There is calcified plaque formation of the left cavernous carotid artery, with a mild stenosis (less than 50%). ALL ABOVE CRITERIA BY NASCET. Electronically Signed: Chavo Farrell MD at 19:23 EDT , ADDENDUM: 05/23/22 193 IMPRESSION: 1. There is mild atherosclerotic plaque formation of the origin of the right internal carotid artery with less than 50% cross sectional diameter stenosis. ALL ABOVE CRITERIA BY NASCET. 2. There is mild atherosclerotic plaque formation of the origin of the left internal carotid artery with less than 50% cross sectional diameter stenosis. ALL ABOVE CRITERIA BY NASCET. 3. There is calcified plaque formation of the right cavernous carotid artery, with a mild stenosis (less than 50%). ALL ABOVE CRITERIA BY NASCET. 4. There is calcified plaque formation of the left cavernous carotid artery, with a mild stenosis (less than 50%). ALL ABOVE CRITERIA BY NASCET. N.B. : The above Results were Read Back by Chavo Farrell MD to Walter Garcia MD, and understanding confirmed on 05/23/2022 19:24:10 (ET). Electronically Signed: Chavo Farrell MD at 19:23 EDT , Chest X-Ray 05/23/22 19:24 IMPRESSION: There are no acute findings. Electronically Signed: Chavo Farrell MD at 19:41 EDT , Brain MRI 05/23/22 23:23 IMPRESSION: Motion artifact. No evidence for acute infarct. Advanced chronic involutional and white matter changes. Old left cerebellar infarct. Electronically Signed: Marlene Smith MD at 11:04 EDT , Echocardiogram 05/23/22 23:23 Interpretation Summary The estimated ejection fraction is 70 %. Mild (1+) mitral valve insufficiency. Aortic sclerosis, no stenosis. Ordering Physician: Frankie Prasad Performed By: Thomas Ly RCS D/C Instructions Discharge Diet: 1800 Calorie Control Diet Weight Bearing Status: Full weight bearing Meaningful Use Info Meaningful Use Diagnoses (Choose all that apply): None applicable Discharge Plan Admission Admit Date/Time: 05/23/22 20:18 Primary Reason for Your Visit: debility, hypoglycemia Attending Provider: Dash Acosta Primary Care Provider: FAHAD PLASENCIA Consulting Providers: Frankie Prasad Discharge Orders/Prescriptions Prescriptions: Continued Humulin N NPH U-100 Insulin 100 UNIT/ML suspension 40 unit SQ DAILY levothyroxine 137 mcg tablet 137 mcg PO 1XD Label Comments: TAKE 1 TABLET BY MOUTH ONCE DAILY IN THE MORNING ON AN EMPTY STOMACH donepezil 5 mg tablet 5 mg PO BID dronabinol 2.5 mg capsule 2.5 mg PO BID Label Comments: TAKE 1 CAPSULE BY MOUTH IN THE EVENING OR AT BEDTIME DAILY FOR 30 DAYS Referrals / Follow Up: FAHAD PLASENCIA [[facility]] [facility] Doctor,Out of [Non-Staff] - Within 2 Weeks Disposition Disposition (needs filled in before D/C Order can be placed): Home Health Service Charges/Coding Visit Charges Inpatient E&M: 45935 Disch Hosp >30min
[2022-05-24 16:25] LABS: Bedside Glucose 273 mg/dL (74-106)
== END 2022-05-24 16:12 | disposition home health service (06) | DRG 639 ==
LOC: ED 19:34 → PCU 23:06
PROVIDERS: Admitting Provider Hospitalist; Emergency Provider Emergency Medicine; Visit Provider Internal Medicine
DX: E10.649 Type 1 diabetes mellitus with hypoglycemia without coma (principal); I27.20 Pulmonary hypertension, unspecified; E10.22 Type 1 diabetes mellitus with diabetic chronic kidney disease; F03.90 Unspecified dementia, unspecified severity, without behavioral disturbance, psychotic disturbance, mood disturbance, and anxiety; Z79.4 Long term (current) use of insulin; E10.65 Type 1 diabetes mellitus with hyperglycemia; N18.2 Chronic kidney disease, stage 2 (mild); Z79.899 Other long term (current) drug therapy; Z86.73 Personal history of transient ischemic attack (TIA), and cerebral infarction without residual deficits
CPT/HCPCS: 36415; 70450; 70496; 70498; 70551; 71045; 80048; 80061; 82140; 82607; 82962; 83036; 84443; 84484; 85025; 85610; 85730; 92523; 93005; 93306; 97162; 97166; 97802; 99285; Q9957; Q9967; A4216